=== PATIENT | female | born 1985 | race Caucasian/White ===

== ENCOUNTER 2016-07-06 03:50 | Inpatient (IN) | payer OTHER ==
[~2016-07-06] VITALS: Ht 162.6 cm; Wt 85.5 kg
[2016-07-06] MEDS ORDERED: AMPICILLIN 2 GM in SODIUM CHLORIDE 0.9% 100 ML IVPB STA (04:43)
[2016-07-06] MEDS ORDERED: D5%-LACTATED RINGERS 1,000 ML IV SCH (04:43)
[2016-07-06] MEDS ORDERED: OXYTOCIN 30U/ 0.9% NaCL 500ML 500 ML IV ONE (04:43)
[2016-07-06] MEDS ORDERED: FENTANYL PF 100 MCG/2ML IV PRN (05:00)
[2016-07-06] MEDS ORDERED: SODIUM CITRATE/CITRIC ACID 30 ML UDC PO PRN (05:00)
[2016-07-06] MEDS ORDERED: METOCLOPRAMIDE 5 MG/ML, 2ML IVPush PRN (05:00)
[2016-07-06] MEDS ORDERED: ONDANSETRON 2MG/ML, 2ML IVPush PRN (05:00)
[2016-07-06] MEDS ORDERED: TERBUTALINE 1 MG/ML, 1ML IVPush PRN (05:00)
[2016-07-06] MEDS ORDERED: FENTANYL PF 100 MCG/2ML IVPush PRN (05:00)
[2016-07-06] MEDS ORDERED: ALUMINUM/MAG/SIMETHICONE 30 ML UDC PO PRN (05:00)
[2016-07-06] MEDS ORDERED: CALCIUM CARBONATE 500 MG TAB.CHEW PO PRN ×2 (05:00→12:30)
[2016-07-06] MEDS ORDERED: FENTANYL PF 100 MCG/2ML ONE (05:06)
[2016-07-06] MEDS ORDERED: PLEASE ENTER HEIGHT AND WEIGHT MC SCH (05:30)
[2016-07-06] MEDS ORDERED: BUPIVACAINE/PF 0.25% ONE (06:15)
[2016-07-06] MEDS ORDERED: FENTANYL/BUPIV./NS/PF 250 ML EPIDCONT ONE (06:15)
[2016-07-06] MEDS ORDERED: FENTANYL/BUPIV./NS/PF 250 ML EPIDCONT SCH (06:18)
[2016-07-06] MEDS: LACTATED RINGERS 1,000 ML IV SCH ×4 (06:24→22:18)
[2016-07-06] MEDS ORDERED: LACTATED RINGERS 1,000 ML IVBOLUS PRN (06:30)
[2016-07-06] MEDS ORDERED: NALOXONE 0.4 MG/ML, 1ML IVPush PRN (06:30)
[2016-07-06] MEDS ORDERED: EPHEDRINE 50 MG/ML, 1ML IVPush PRN (06:30)
[2016-07-06] MEDS ORDERED: MISOPROSTOL 200 MCG TABLET ONE (07:17)
[2016-07-06] MEDS ORDERED: OXYTOCIN 30U/ 0.9% NaCL 500ML 500 ML ONE ×2 (07:17→12:53)
[2016-07-06] MEDS ORDERED: LIDOCAINE 1%, 20ML ONE (07:17)
[2016-07-06] MEDS ORDERED: AMPICILLIN 1 GM in SODIUM CHLORIDE 0.9% 50 ML IVPB SCH (08:30)
[2016-07-06] MEDS ORDERED: NEWBORN KIT ONE (08:37)
[2016-07-06] MEDS ORDERED: MAGNESIUM HYDROXIDE 8%, 30ML UDC PO PRN (12:30)
[2016-07-06] MEDS ORDERED: ONDANSETRON 2MG/ML, 2ML IV PRN (12:30)
[2016-07-06] MEDS ORDERED: MISOPROSTOL 200 MCG TABLET PR PRN (12:30)
[2016-07-06] MEDS ORDERED: ACETAMINOPHEN 325 MG TABLET PO PRN ×2 (12:30)
[2016-07-06] MEDS ORDERED: HYDROcodone/APAP 5/325 TABLET PO PRN (12:30)
[2016-07-06] MEDS ORDERED: BISACODYL 10 MG SUPP PR PRN (12:30)
[2016-07-06] MEDS ORDERED: IBUPROFEN 600 MG TABLET ONE (12:53)
[2016-07-06] MEDS: IBUPROFEN 600 MG TABLET PO PRN ×2 (13:16→21:16)
[2016-07-06] MEDS: OXYTOCIN 30U/ 0.9% NaCL 500ML 500 ML IV SCH ×4 (13:49→23:42)
[2016-07-06 14:30] VITALS: BP 113/72
[2016-07-06 22:00] VITALS: BP 126/79
[2016-07-07 02:00] VITALS: BP 122/74
[2016-07-07] MEDS: IBUPROFEN 600 MG TABLET PO PRN ×2 (05:12→15:19)
[2016-07-07 06:00] VITALS: BP 118/75
[2016-07-07] MEDS ORDERED: PRENATAL VIT/IRON/FA 1 EACH TABLET ONE (07:58)
[2016-07-07 08:00] VITALS: BP 118/75
[2016-07-07] MEDS: DOCUSATE 100 MG CAPSULE PO PRN (08:06)
[2016-07-07] MEDS: PRENATAL VIT/IRON/FA 1 EACH TABLET PO SCH (08:06)
[2016-07-07] MEDS: HYDROcodone/APAP 5/325 TABLET PO PRN ×2 (08:40→15:19)
[2016-07-07] MEDS ORDERED: MEASLES,MUMPS&RUBELLA VACC/PF 0.5 ML SQ-VACC ONE (19:00)
[2016-07-07 20:55] VITALS: BP 116/79
[2016-07-08] MEDS: IBUPROFEN 600 MG TABLET PO PRN ×2 (02:30→09:07)
[2016-07-08] MEDS ORDERED: IBUP-1222 PO (05:22)
[2016-07-08] MEDS ORDERED: HYDR-3240 PO (05:22)
[2016-07-08] MEDS ORDERED: DOCU-30 PO (05:23)
[2016-07-08 08:21] VITALS: BP 116/74
[2016-07-08] MEDS: PRENATAL VIT/IRON/FA 1 EACH TABLET PO SCH (09:07)
[2016-07-08] MEDS: DOCUSATE 100 MG CAPSULE PO PRN (09:07)
== END 2016-07-08 14:15 | disposition home or self-care (01) | DRG 775 ==
LOC: LDOP 03:50 → LDIP 04:45 → 2NW 14:07
PROVIDERS: ADMIT Obstetrics & Gynecology; ATTEND Obstetrics & Gynecology
PROC: 10E0XZZ Delivery of Products of Conception, External Approach (ICD-10-PCS; principal; 2016-07-06)
PROC: 0UQMXZZ Repair Vulva, External Approach (ICD-10-PCS; 2016-07-06)
PROC: 3E0R3CZ (ICD-10-PCS; 2016-07-06)
PROC: 00HU33Z Insertion of Infusion Device into Spinal Canal, Percutaneous Approach (ICD-10-PCS; 2016-07-06)
DX: O42.913 Preterm premature rupture of membranes, unspecified as to length of time between rupture and onset of labor, third trimester (principal); O60.14X0 Preterm labor third trimester with preterm delivery third trimester, not applicable or unspecified; O71.82 Other specified trauma to perineum and vulva; Z37.0 Single live birth; Z3A.36 36 weeks gestation of pregnancy; Z88.5 Allergy status to narcotic agent; Z23 Encounter for immunization
CPT/HCPCS: 36415; 85025; 86850; 86900; J0290; J3010; J2590; J7120

== ENCOUNTER 2018-06-01 12:50 | Outpatient (CLI) | payer MEDICAID ==
[~2018-06-01] VITALS: Ht 160 cm; Wt 92.7 kg
[~2018-06-01 12:50] MED LIST: DOCU-131 PO; HYDR-3240 PO; IBUP-1222 PO
[2018-06-01 13:38] VITALS: BP 114/75
[2018-06-01 13:50] LABS: BASOPHILS # (AUTO) 0.07 x10^3/uL (0-0.1); BASOPHILS % (AUTO) 1 % (0-1); EOSINOPHILS # (AUTO) 0.06 x10^3/uL (0-0.4); EOSINOPHILS % (AUTO) 1 % (1-7); LYMPHOCYTES # (AUTO) 1.88 x10^3/uL (1-3.4); LYMPHOCYTES % (AUTO) 21 % (22-44); MD NO; MEAN CORPUSCULAR HEMOGLOBIN 30.1 pg (27.0-34.8); MEAN CORPUSCULAR VOLUME 88.4 fL (80-100); MEAN PLATELET VOLUME 9.3 fL (7.4-10.4); MONOCYTES % (AUTO) 7 % (2-9); NEUTROPHILS # (AUTO) 6.27 x10^3/uL (1.8-6.8); NEUTROPHILS % (AUTO) 71 % (42-75); PLATELET COUNT 237 x10^3/uL (130-400); RED BLOOD COUNT 4.56 x10^6/uL (3.82-5.3); RED CELL DISTRIBUTION WIDTH 13.6 % (9.6-15.2)
[2018-06-01] MEDS ORDERED: OMEP40CA6 PO (13:53)
[2018-06-01] MEDS ORDERED: PREN1TAB10 PO (13:53)
[2018-06-01 14:28] LABS: MICROSCOPIC INDICATED
[2018-06-01] MEDS ORDERED: NITR100C56 PO (16:10)
== END 2018-06-01 16:44 | disposition home or self-care (01) ==
LOC: LDOP 12:50
PROVIDERS: ATTEND Obstetrics & Gynecology
DX: O23.43 Unspecified infection of urinary tract in pregnancy, third trimester (principal); Z3A.35 35 weeks gestation of pregnancy; Z91.81 History of falling
CPT/HCPCS: 36415; 59025; 81001; 85025; 85460; 87086; 99211; G0463

== ENCOUNTER 2018-06-22 17:59 | Inpatient (IN) | payer MEDICAID ==
[~2018-06-22] VITALS: Ht 160 cm; Wt 95.0 kg
[~2018-06-22 17:59] MED LIST changes: +NITR100C56 PO; +OMEP40CA6 PO; +PREN1TAB10 PO
[2018-06-22 18:55] VITALS: BP 136/81
[2018-06-22] MEDS ORDERED: LACTATED RINGERS 1,000 ML IV SCH ×2 (19:16→20:38)
[2018-06-22] MEDS ORDERED: OXYTOCIN 30U/ 0.9% NaCL 500ML 500 ML IV ONE (19:16)
[2018-06-22] MEDS ORDERED: OXYTOCIN 30U/ 0.9% NaCL 500ML 500 ML ONE (19:17)
[2018-06-22] MEDS ORDERED: LIDOCAINE 1%, 20ML ONE (19:17)
[2018-06-22] MEDS ORDERED: MISOPROSTOL 200 MCG TABLET ONE (19:17)
[2018-06-22] MEDS ORDERED: NEWBORN KIT ONE (19:17)
[2018-06-22] MEDS ORDERED: FENTANYL/BUPIV./NS/PF 250 ML EPIDCONT SCH ×2 (19:18→20:38)
[2018-06-22] MEDS ORDERED: FENTANYL PF 100 MCG/2ML ONE (19:29)
[2018-06-22] MEDS ORDERED: FENTANYL PF 100 MCG/2ML IVPush PRN (19:30)
[2018-06-22] MEDS ORDERED: FENTANYL PF 100 MCG/2ML IV PRN (19:30)
[2018-06-22] MEDS ORDERED: CALCIUM CARBONATE 500 MG TAB.CHEW PO PRN (19:30)
[2018-06-22] MEDS ORDERED: ONDANSETRON 2MG/ML, 2ML IVPush PRN ×2 (19:30→21:00)
[2018-06-22 19:56] LABS: BASOPHILS # (AUTO) 0.04 x10^3/uL (0-0.1); BASOPHILS % (AUTO) 0 % (0-1); EOSINOPHILS # (AUTO) 0.08 x10^3/uL (0-0.4); EOSINOPHILS % (AUTO) 1 % (1-7); LYMPHOCYTES # (AUTO) 2.21 x10^3/uL (1-3.4); LYMPHOCYTES % (AUTO) 19 % (22-44); MD NO; MEAN CORPUSCULAR HEMOGLOBIN 30.4 pg (27.0-34.8); MEAN CORPUSCULAR HGB CONC 34.3 g/dL (32.4-35.8); MEAN CORPUSCULAR VOLUME 88.7 fL (80-100); MEAN PLATELET VOLUME 9.5 fL (7.4-10.4); MONOCYTES # (AUTO) 0.66 x10^3/uL (0.2-0.8); MONOCYTES % (AUTO) 6 % (2-9); NEUTROPHILS # (AUTO) 8.46 x10^3/uL (1.8-6.8); NEUTROPHILS % (AUTO) 74 % (42-75); PLATELET COUNT 230 x10^3/uL (130-400); RED BLOOD COUNT 4.69 x10^6/uL (3.82-5.3)
[2018-06-22] MEDS ORDERED: FENTANYL PF 500 MCG, BUPIVACAINE/PF 0.5%, 30ML 62.5 ML in SODIUM CHLORIDE 0.9% 177.5 ML EPIDCONT SCH (20:00)
[2018-06-22] MEDS ORDERED: BUPIVACAINE 0.25% ONE (20:04)
[2018-06-22] MEDS ORDERED: EPHEDRINE 50 MG/ML, 1ML IVPush PRN (21:00)
[2018-06-22] MEDS ORDERED: DIPHENHYDRAMINE 50 MG/ML, 1ML IVPush PRN (21:00)
[2018-06-22] MEDS ORDERED: NALOXONE 0.4 MG/ML, 1ML IVPush PRN (21:00)
[2018-06-22] MEDS ORDERED: LACTATED RINGERS 1,000 ML IVBOLUS PRN (21:00)
[2018-06-22] MEDS ORDERED: LIDOCAINE/MPF 2%-EPI 1:200K, 20 ML ONE (22:04)
[2018-06-23] MEDS: OXYTOCIN 30U/ 0.9% NaCL 500ML 500 ML IV SCH ×7 (00:32→09:08)
[2018-06-23] MEDS ORDERED: OXYTOCIN 30U/ 0.9% NaCL 500ML 500 ML IV SCH (00:32)
[2018-06-23] MEDS ORDERED: SODIUM CITRATE/CITRIC ACID 15 ML UDC ONE (00:52)
[2018-06-23] MEDS ORDERED: METOCLOPRAMIDE 5 MG/ML, 2ML ONE (00:52)
[2018-06-23] MEDS ORDERED: ACETAMINOPHEN 325 MG TABLET PO PRN ×2 (01:00)
[2018-06-23] MEDS ORDERED: HYDROcodone/APAP 5/325 TABLET PO PRN (01:00)
[2018-06-23] MEDS ORDERED: ONDANSETRON 2MG/ML, 2ML IV PRN (01:00)
[2018-06-23] MEDS ORDERED: CALCIUM CARBONATE 500 MG TAB.CHEW PO PRN (01:00)
[2018-06-23] MEDS ORDERED: SODIUM CITRATE/CITRIC ACID 15 ML UDC PO ONE (01:00)
[2018-06-23] MEDS ORDERED: METOCLOPRAMIDE 5 MG/ML, 2ML IV ONE (01:00)
[2018-06-23] MEDS ORDERED: MISOPROSTOL 200 MCG TABLET PR PRN (01:00)
[2018-06-23] MEDS ORDERED: BUPIVACAINE 0.25% ONE (01:19)
[2018-06-23] MEDS ORDERED: MEPERIDINE/PF 50 MG/ML ONE (01:43)
[2018-06-23] MEDS ORDERED: MEPERIDINE/PF 50 MG/ML IVPush PRN (02:00)
[2018-06-23] MEDS: IBUPROFEN 600 MG TABLET PO PRN ×4 (03:21→16:20)
[2018-06-23 03:40] VITALS: BP 120/70
[2018-06-23 07:10] VITALS: BP 115/80
[2018-06-23] MEDS: HYDROcodone/APAP 5/325 TABLET PO PRN ×4 (08:20→21:06)
[2018-06-23] MEDS: DOCUSATE 100 MG CAPSULE PO PRN ×2 (08:21→21:06)
[2018-06-23] MEDS: PRENATAL VIT/IRON/FA 1 EACH TABLET PO SCH (08:21)
[2018-06-23 08:47] LABS: MEAN CORPUSCULAR HEMOGLOBIN 29.8 pg (27.0-34.8); MEAN CORPUSCULAR HGB CONC 33.4 g/dL (32.4-35.8); MEAN CORPUSCULAR VOLUME 89.3 fL (80-100); MEAN PLATELET VOLUME 9.5 fL (7.4-10.4); PLATELET COUNT 211 x10^3/uL (130-400); RED BLOOD COUNT 4.22 x10^6/uL (3.82-5.3); RED CELL DISTRIBUTION WIDTH 13.9 % (9.6-15.2)
[2018-06-23 09:16] LABS: BASOPHILS # (AUTO) 0.05 x10^3/uL (0-0.1); BASOPHILS % (AUTO) 0 % (0-1); EOSINOPHILS # (AUTO) 0.01 x10^3/uL (0-0.4); EOSINOPHILS % (AUTO) 0 % (1-7); LYMPHOCYTES # (AUTO) 1.66 x10^3/uL (1-3.4); LYMPHOCYTES % (AUTO) 11 % (22-44); MD SCAN; MONOCYTES # (AUTO) 0.92 x10^3/uL (0.2-0.8); MONOCYTES % (AUTO) 6 % (2-9); NEUTROPHILS # (AUTO) 11.99 x10^3/uL (1.8-6.8); NEUTROPHILS % (AUTO) 82 % (42-75)
[2018-06-23 12:56] VITALS: BP 120/81
[2018-06-23 16:21] VITALS: BP 111/76
[2018-06-23 19:45] VITALS: BP 103/71
[2018-06-24] MEDS: IBUPROFEN 600 MG TABLET PO PRN ×3 (00:01→14:21)
[2018-06-24 00:23] VITALS: BP 123/83
[2018-06-24] MEDS: HYDROcodone/APAP 5/325 TABLET PO PRN ×4 (02:09→15:41)
[2018-06-24 08:15] VITALS: BP 118/79
[2018-06-24] MEDS: DOCUSATE 100 MG CAPSULE PO PRN (08:17)
[2018-06-24] MEDS: PRENATAL VIT/IRON/FA 1 EACH TABLET PO SCH (08:17)
[2018-06-24] MEDS ORDERED: DOCU-131 PO (10:56)
[2018-06-24] MEDS ORDERED: IBUP-1222 PO (10:56)
[2018-06-24] MEDS ORDERED: HYDR-3240 PO (10:56)
== END 2018-06-24 15:40 | disposition home or self-care (01) | DRG 798 ==
LOC: LDOP 17:59 → LDIP 19:26 → 2NW 06-23 03:11
PROVIDERS: ADMIT Obstetrics & Gynecology; ATTEND Obstetrics & Gynecology
PROC: 10E0XZZ Delivery of Products of Conception, External Approach (ICD-10-PCS; principal; 2018-06-23)
PROC: 0UB70ZZ Excision of Bilateral Fallopian Tubes, Open Approach (ICD-10-PCS; 2018-06-23)
PROC: 10907ZC Drainage of Amniotic Fluid, Therapeutic from Products of Conception, Via Natural or Artificial Opening (ICD-10-PCS; 2018-06-23)
PROC: 3E0S3BZ Introduction of Anesthetic Agent into Epidural Space, Percutaneous Approach (ICD-10-PCS; 2018-06-23)
PROC: 00HU33Z Insertion of Infusion Device into Spinal Canal, Percutaneous Approach (ICD-10-PCS; 2018-06-23)
DX: O99.284 Endocrine, nutritional and metabolic diseases complicating childbirth (principal); Z37.0 Single live birth; O99.354 Diseases of the nervous system complicating childbirth; G43.909 Migraine, unspecified, not intractable, without status migrainosus; E78.00 Pure hypercholesterolemia, unspecified; Z3A.38 38 weeks gestation of pregnancy; Z83.3 Family history of diabetes mellitus; Z80.3 Family history of malignant neoplasm of breast; Z30.2 Encounter for sterilization; Z88.8 Allergy status to other drugs, medicaments and biological substances
CPT/HCPCS: 36415; J3490; 85025; 86850; 86900; 88302; G0378; J3010; J2590; J2765; J7050; J7120